=== PATIENT | male | born 1985 | race African-American/Black ===

== ENCOUNTER 2017-08-23 15:52 | Emergency (ER) | payer SELFPAY | END 2017-08-23 17:55 | disposition home or self-care (01) | LOC: ER 15:52 | DX: S80.812A Abrasion, left lower leg, initial encounter (principal); J45.909 Unspecified asthma, uncomplicated; W25.XXXA Contact with sharp glass, initial encounter; Y93.89 Activity, other specified; Y92.89 Other specified places as the place of occurrence of the external cause; Y99.8 Other external cause status | CPT/HCPCS: 73590; 99284 ==